=== PATIENT | female | born 1960 | race Caucasian/White ===

== ENCOUNTER 2022-01-31 08:15 | Emergency (ER) | payer OTHER ==
[~2022-01-31] VITALS: Ht 157.5 cm; Wt 72.6 kg
[2022-01-31] MEDS ORDERED: HYDR1TAB94 PO ×2 (10:12→10:14)
== END 2022-01-31 10:42 | disposition home or self-care (01) ==
LOC: ER 08:15
DX: S01.81XA Laceration without foreign body of other part of head, initial encounter (principal); M54.2 Cervicalgia; W01.10XA Fall on same level from slipping, tripping and stumbling with subsequent striking against unspecified object, initial encounter; Z88.8 Allergy status to other drugs, medicaments and biological substances; Z88.5 Allergy status to narcotic agent
CPT/HCPCS: 12013; 70450; 72125; 96372-59; 99284-25; J1885